=== PATIENT | female | born 1970 | race Two or more races ===

== ENCOUNTER 2017-11-15 02:12 | Emergency (ER) | payer OTHER ==
[~2017-11-15] VITALS: Ht 167.6 cm; Wt 64.0 kg
[2017-11-15 02:16] VITALS: Ht 167.6 cm; Wt 64.0 kg
[2017-11-15 04:33] VITALS: BP 111/68
== END 2017-11-15 04:34 | disposition home or self-care (01) ==
LOC: ED 02:12
DX: S01.81XA Laceration without foreign body of other part of head, initial encounter (principal); S80.01XA Contusion of right knee, initial encounter; S60.221A Contusion of right hand, initial encounter; S09.90XA Unspecified injury of head, initial encounter; W25.XXXA Contact with sharp glass, initial encounter; Y93.89 Activity, other specified; Y92.89 Other specified places as the place of occurrence of the external cause; Y99.8 Other external cause status
CPT/HCPCS: 90715; J2001

== ENCOUNTER 2017-11-17 14:52 | Emergency (ER) | payer OTHER ==
[~2017-11-17] VITALS: Ht 167.6 cm; Wt 63.5 kg
[2017-11-17 15:11] VITALS: BP 129/94
== END 2017-11-17 16:42 | disposition home or self-care (01) ==
LOC: ED 14:52
DX: S01.81XD Laceration without foreign body of other part of head, subsequent encounter (principal); X58.XXXD Exposure to other specified factors, subsequent encounter

== ENCOUNTER 2017-11-22 15:38 | Emergency (ER) | payer OTHER ==
[~2017-11-22] VITALS: Ht 172.7 cm; Wt 62.6 kg
[2017-11-22 15:46] VITALS: Ht 172.7 cm; Wt 62.6 kg
[2017-11-22 16:41] VITALS: BP 120/81
== END 2017-11-22 16:41 | disposition home or self-care (01) ==
LOC: ED 15:38
DX: S01.81XD Laceration without foreign body of other part of head, subsequent encounter (principal); X58.XXXD Exposure to other specified factors, subsequent encounter